=== PATIENT | male | born 1945 | race Caucasian/White ===

== ENCOUNTER 2019-02-11 20:33 | Emergency (ER) | payer MEDICARE | END 2019-02-11 21:21 | disposition home or self-care (01) | LOC: EDH 20:33 | DX: S01.01XA Laceration without foreign body of scalp, initial encounter (principal); Z90.49 Acquired absence of other specified parts of digestive tract; Z85.6 Personal history of leukemia; W22.8XXA Striking against or struck by other objects, initial encounter; Y93.89 Activity, other specified; Y92.89 Other specified places as the place of occurrence of the external cause; Y99.8 Other external cause status | CPT/HCPCS: 12031 ==

== ENCOUNTER → 2023-06-23 | Outpatient (CLI) | payer MEDICARE | END | disposition home or self-care (01) | LOC: RAH 12:26 | PROVIDERS: ATTEND Physical Medicine & Rehabilitation | DX: S62.632A Displaced fracture of distal phalanx of right middle finger, initial encounter for closed fracture (principal); M79.641 Pain in right hand; M54.2 Cervicalgia; M47.812 Spondylosis without myelopathy or radiculopathy, cervical region; M48.02 Spinal stenosis, cervical region; X58.XXXA Exposure to other specified factors, initial encounter; Y93.89 Activity, other specified; Y92.89 Other specified places as the place of occurrence of the external cause; Y99.8 Other external cause status | CPT/HCPCS: 72050; 73130 ==

== ENCOUNTER → 2023-10-08 | Outpatient (CLI) | payer MEDICARE | END | disposition home or self-care (01) | LOC: RAH 12:18 | PROVIDERS: ATTEND Physician Assistant | DX: M25.511 Pain in right shoulder (principal) | CPT/HCPCS: 73030 ==